=== PATIENT | male | born 1945 | race Caucasian/White ===

== ENCOUNTER 2021-08-02 10:11 | Emergency (ER) | payer OTHER, BC ==
[~2021-08-02] VITALS: Ht 175.3 cm; Wt 113.4 kg
== END 2021-08-02 12:13 | disposition home or self-care (01) ==
LOC: ER 10:11
DX: U07.1 COVID-19 (principal); Z23 Encounter for immunization
CPT/HCPCS: 36415; 96374; 99283-25; J1885; M0247